=== PATIENT | female | born 1945 | race Caucasian/White ===

== ENCOUNTER → 2018-02-26 | Outpatient (CLI) | payer OTHER ==
[~2018-02-26] MED LIST: ATEN100T PO; HYDR-3307 PO; MULT-717 PO; REGADENOSON 0.4 MG/5 ML SYRINGE ONE
== END | disposition home or self-care (01) ==
LOC: CFH 08:25
PROVIDERS: ATTEND Internal Medicine Cardiovascular Disease
DX: I10 Essential (primary) hypertension (principal); R06.02 Shortness of breath; R00.1 Bradycardia, unspecified
CPT/HCPCS: 78452; 93017; A9502; J2785

== ENCOUNTER 2018-03-16 09:23 | Observation (INO) | payer OTHER ==
[2018-03-15 11:29] VITALS: BP 154/92
[2018-03-15 12:07] LABS: BASOPHILS # (AUTO) 0.16 x10^3/uL (0-0.1); BASOPHILS % (AUTO) 2 % (0-1); EOSINOPHILS # (AUTO) 0.17 x10^3/uL (0-0.4); EOSINOPHILS % (AUTO) 2 % (1-7); LYMPHOCYTES # (AUTO) 2.99 x10^3/uL (1-3.4); LYMPHOCYTES % (AUTO) 36 % (22-44); MD NO; MEAN CORPUSCULAR HEMOGLOBIN 29.2 pg (27.0-34.8); MEAN CORPUSCULAR HGB CONC 33.2 g/dL (32.4-35.8); MEAN CORPUSCULAR VOLUME 87.7 fL (80-100); MEAN PLATELET VOLUME 8.6 fL (7.4-10.4); MONOCYTES # (AUTO) 0.65 x10^3/uL (0.2-0.8); MONOCYTES % (AUTO) 8 % (2-9); NEUTROPHILS # (AUTO) 4.25 x10^3/uL (1.8-6.8); NEUTROPHILS % (AUTO) 52 % (42-75); PLATELET COUNT 320 x10^3/uL (130-400); RED BLOOD COUNT 5.48 x10^6/uL (3.82-5.3); RED CELL DISTRIBUTION WIDTH 15.1 % (9.6-15.2)
[2018-03-15 12:18] LABS: ANION GAP 5 mmol/L (5-15); CALCIUM 9.5 mg/dL (8.5-10.1); CHLORIDE 107 mmol/L (98-107); CREATININE 0.85 mg/dL (0.55-1.02)
[~2018-03-16] VITALS: Ht 167.6 cm; Wt 84.0 kg
[~2018-03-16 09:23] MED LIST changes: -REGADENOSON 0.4 MG/5 ML SYRINGE ONE
[2018-03-16] MEDS ORDERED: SODIUM CHLORIDE 0.9% 1,000 ML IV ONE (09:35)
[2018-03-16] MEDS ORDERED: LISI-167 PO (09:50)
[2018-03-16] MEDS ORDERED: ASPIRIN 325 MG TABLET EC PO ONE (10:00)
[2018-03-16] MEDS ORDERED: MIDAZOLAM 1 MG/ML, 5ML ONE (10:39)
[2018-03-16] MEDS ORDERED: FENTANYL PF 100 MCG/2ML ONE (10:39)
[2018-03-16] MEDS ORDERED: VERAPAMIL 2.5 MG/ML, 2ML ONE (10:40)
[2018-03-16] MEDS ORDERED: HEPARIN 1,000 UNITS/ML, 10ML ONE (10:40)
[2018-03-16] MEDS ORDERED: BIVALIRUDIN 250 MG ONE (10:40)
[2018-03-16] MEDS ORDERED: TICAGRELOR 90 MG TABLET ONE (10:40)
[2018-03-16] MEDS ORDERED: SODIUM CHLORIDE 0.9% 1,000 ML IV SCH (11:22)
[2018-03-16 11:39] VITALS: BP 136/77
[2018-03-16] MEDS: LISINOPRIL 10 MG TABLET PO SCH (12:24)
[2018-03-16] MEDS: ATENOLOL 50 MG TABLET PO SCH (12:24)
[2018-03-16] MEDS ORDERED: ASPI-650 PO (13:05)
[2018-03-16] MEDS ORDERED: IBUP-1223 PO (13:05)
[2018-03-16 14:27] VITALS: BP 142/73
[2018-03-16 19:25] VITALS: BP 159/85
[2018-03-17] MEDS: ACETAMINOPHEN 500 MG TABLET PO PRN ×2 (00:32→07:45)
[2018-03-17 00:33] VITALS: BP 165/89
[2018-03-17] MEDS: LISINOPRIL 10 MG TABLET PO SCH (07:45)
[2018-03-17] MEDS: ATENOLOL 50 MG TABLET PO SCH (07:45)
[2018-03-17 08:07] VITALS: BP 152/82
[2018-03-17] MEDS ORDERED: LISI-167 PO (08:41)
== END 2018-03-17 11:21 | disposition home or self-care (01) ==
LOC: CACL 09:23 → 5SO 11:30 → CACL 23:09
PROVIDERS: ADMIT Internal Medicine Cardiovascular Disease; ATTEND Internal Medicine Cardiovascular Disease
DX: I25.10 Atherosclerotic heart disease of native coronary artery without angina pectoris (principal); R07.9 Chest pain, unspecified; I10 Essential (primary) hypertension; R06.02 Shortness of breath
CPT/HCPCS: 36415; 80048; 85025; 93458; 99156; C1769; C1894; G0378; J1644; J2250; J3010; J7030; Q9967; J0583